=== PATIENT | female | born 1995 | race African-American/Black ===

== ENCOUNTER 2017-06-04 13:36 | Emergency (ER) | payer MEDICARE, MEDICAID ==
[2017-06-04 14:18] LABS: Bilirubin Negative (Negative); Blood, Urine Trace (Negative); Clarity Cloudy (Clear); Glucose, Urine (Dipstick) Negative (Negative); Leukocyte Moderate (Negative); Nitrite Negative (Negative); Protein, Urine (Dipstick) Negative (Neg-Trace); pH, Urine 7.5 (5.0-9.0)
[2017-06-04 14:21] LABS: Bacteria/HPF 3+ HPF (None Seen); RBC/HPF 0-3 HPF (0-3); Squamous Epithelial 0-3 HPF (0-3)
[2017-06-04 14:25] LABS: Pregnancy Test - Urine (BHCG) Negative (Negative); Pregu Control Background? CLEAR/WHITE (CLR/WHITE); Pregu Control Bar Appear? YES (CONTROL BAR)
--- NOTE | 2017-06-04 17:59 | RAD ---
ABDOMEN 06/04/17 Supine views of the abdomen shows a normal bowel gas pattern. There is no sign of distended bowel, fl uid filled bowel, or other acute change. Gas is seen in a few loops of small bowel that is nondistend ed. A tiny pelvic calcification on the left is most likely a phlebolith. Mild scoliosis convexed righ t is present. Shunt tubing is seen coiled in the left upper quadrant of the abdomen. IMPRESSION: No acute finding. POS: HOME
== END 2017-06-04 15:00 | disposition home or self-care (01) ==
LOC: BURERS 13:36
DX: K59.00 Constipation, unspecified (principal); N39.0 Urinary tract infection, site not specified
CPT/HCPCS: 74018; 81003; 81015; 81025; 99284

== ENCOUNTER 2018-01-19 07:33 | Emergency (ER) | payer MEDICARE, MEDICAID ==
[2018-01-19 08:05] LABS: #Basophils 0.1 thou/uL (0.0-0.2); #Eosinphils 0.2 thou/uL (0.0-0.7); #Lymphocytes 3.1 thou/uL (1.20-3.40); #Monocytes 0.8 thou/uL (0.11-0.59); #Neutrophils 9.7 thou/uL (1.40-6.50); %Basophils 0.5 % (0.0-1.0); %Eosinophils 1.2 % (0.0-10.0); %Lymphocytes 22.3 % (21.0-51.0); %Monocytes 5.7 % (0.0-10.0); %Neutrophils 70.2 % (42.0-75.0); Hemoglobin 13.4 g/dL (12.0-16.0); Mean Corpuscular HGB CONC 33.1 g/dL (32.0-36.0); Mean Corpuscular Hemoglobin 26.4 pg (27.0-31.0); Mean Corpuscular Volume 79.6 fL (78.0-98.0); Mean Platelet Volume 10.5 fL (7.4-10.4); Platelet Count 298 thou/uL (130-400); RBC Distribution Width 12.6 % (11.5-14.5); Red Blood Cell (RBC) Count 5.09 mill/uL (4.20-5.40); White Blood Cell (WBC) Count 13.8 thou/uL (4.8-10.8)
[2018-01-19 08:20] LABS: ALT (SGPT) 18 U/L (8-55); AST (SGOT) 15 U/L (5-34); Albumin 4.2 g/dL (3.5-5.0); Alkaline Phosphatase 90 U/L (40-150); Anion Gap 15 mmol/L (10-20); BUN (Urea Nitrogen) 11 mg/dL (7.0-18.7); Bilirubin, Total 0.2 mg/dL (0.2-1.2); Calc. Creatinine Clearance 0 mL/min (70-130); Calcium 9.8 mg/dL (7.8-10.44); Carbon Dioxide 23 mmol/L (22-29); Chloride 102 mmol/L (98-107); Estimated GFR-MDRD Greater than 90; Globulin 3.7 g/dL (2.4-3.5); Glucose 108 mg/dL (70-105); Lipase 15 U/L (8-78); Potassium 3.2 mmol/L (3.5-5.1); Protein, Total 7.9 g/dL (6.0-8.3); Sodium 137 mmol/L (136-145)
[2018-01-19 08:29] LABS: Bilirubin Negative (Negative); Clarity Slightly Cloudy (Clear); Glucose, Urine (Dipstick) Negative (Negative); Leukocyte Small (Negative); Nitrite Negative (Negative); Protein, Urine (Dipstick) Trace mg/dL (Neg-Trace)
[2018-01-19 08:30] LABS: Blood, Urine Negative (Negative); Pregnancy Test - Urine (BHCG) Negative (Negative); Pregu Control Background? CLEAR/WHITE (CLR/WHITE); Pregu Control Bar Appear? YES (CONTROL BAR)
[2018-01-19 08:45] LABS: Bacteria/HPF 1+ HPF (None Seen); Crystals/HPF 1+ AMORPH URATES HPF (Negative); RBC/HPF None Seen HPF (0-3); Transitional Epithelial 0-3 HPF (0-3); WBC/HPF 0-3 HPF (0-3)
[2018-01-19 08:46] LABS: Renal Epithelial 0-3 HPF (0-3)
[2018-01-19] MEDS ORDERED: Magnesium Citrate 300 ML BOT ONE (08:49)
--- NOTE | 2018-01-19 19:03 | RAD ---
ABDOMEN ONE VIEW: Date: 01-19-18 Comparison: 06-04-17 FINDINGS: The abdominal gas pattern is normal. There is no sign of obstruction. A tube is seen in the left uppe r quadrant that is presumably a [employer] shunt. There are no calcifications of concern. Some pelvic calcifi cations are present which are indeterminate in significance. IMPRESSION: No acute findings. POS: HOME
== END 2018-01-19 08:58 | disposition home or self-care (01) ==
LOC: BURERS 07:33
DX: K59.00 Constipation, unspecified (principal); Z79.899 Other long term (current) drug therapy
CPT/HCPCS: 36415; 74018; 80053; 81003; 81015; 81025; 83690; 85025; 87086

== ENCOUNTER 2018-05-13 18:36 | Emergency (ER) | payer MEDICARE, MEDICAID ==
[2018-05-13] MEDS ORDERED: Lidocaine 4% Cream 5 GM TUBE w/ Tegaderm ONE (19:06)
== END 2018-05-13 19:15 | disposition home or self-care (01) ==
LOC: BURERS 18:36
DX: Z48.00 Encounter for change or removal of nonsurgical wound dressing (principal); I10 Essential (primary) hypertension; J45.909 Unspecified asthma, uncomplicated
CPT/HCPCS: 99282

== ENCOUNTER 2018-05-20 10:18 | Emergency (ER) | payer MEDICARE, MEDICAID ==
[2018-05-20] MEDS ORDERED: Ondansetron ODT 4 MG TAB ONE (11:15)
== END 2018-05-20 11:35 | disposition home or self-care (01) ==
LOC: BURERS 10:18
DX: A08.4 Viral intestinal infection, unspecified (principal); I10 Essential (primary) hypertension; J45.909 Unspecified asthma, uncomplicated; F41.9 Anxiety disorder, unspecified
CPT/HCPCS: 99283; Q0162

== ENCOUNTER 2018-10-31 10:02 | Emergency (ER) | payer MEDICARE, MEDICAID | END 2018-10-31 11:22 | disposition home or self-care (01) | LOC: BURERS 10:02 | DX: A08.4 Viral intestinal infection, unspecified (principal); J45.909 Unspecified asthma, uncomplicated; I10 Essential (primary) hypertension; F41.9 Anxiety disorder, unspecified; Z79.899 Other long term (current) drug therapy | CPT/HCPCS: 99283 ==

== ENCOUNTER 2019-11-25 13:25 | Emergency (ER) | payer MEDICARE, MEDICAID ==
--- NOTE | 2019-11-25 14:20 | RAD ---
RADIOGRAPH CHEST 2 VIEWS: DATE: 11/25/2019 HISTORY: 24-year-old female with chest pain FINDINGS: There is no airspace density, pulmonary edema, pleural effusion, pneumothorax, or cardiomegaly. IMPRESSION: No acute cardiopulmonary findings.
== END 2019-11-25 14:32 | disposition home or self-care (01) ==
LOC: BURERS 13:25
DX: R07.89 Other chest pain (principal); I10 Essential (primary) hypertension; J45.909 Unspecified asthma, uncomplicated; Z79.899 Other long term (current) drug therapy
CPT/HCPCS: 36415; 71046; 82550; 84484; 93005

== ENCOUNTER 2021-04-21 17:07 | Emergency (ER) | payer MEDICARE, OTHER ==
[2021-04-21] MEDS ORDERED: diphenhydrAMINE 50 MG/ML VIAL ONE (17:53)
[2021-04-21] MEDS ORDERED: Metoclopramide HCl 10 MG/2 ML VIAL ONE (17:53)
== END 2021-04-21 18:44 | disposition home or self-care (01) ==
LOC: BURERS 17:07
DX: R51.9 Headache, unspecified (principal); I10 Essential (primary) hypertension; J45.909 Unspecified asthma, uncomplicated
CPT/HCPCS: 70450; 75809; 96374; 96375; J1200; J2765